=== PATIENT | male | born 1980 | race African-American/Black ===

== ENCOUNTER 2019-06-09 18:49 | Emergency (ER) | payer OTHER ==
[~2019-06-09] VITALS: Ht 162.6 cm; Wt 94.8 kg
[~2019-06-09 18:49] MED LIST: IBUPROFEN 600600 M1 PO
[2019-06-09 20:23] VITALS: BP 136/92
== END 2019-06-09 20:23 | disposition home or self-care (01) ==
LOC: ER 18:49
DX: M79.604 Pain in right leg (principal); J45.909 Unspecified asthma, uncomplicated; M10.9 Gout, unspecified; F17.210 Nicotine dependence, cigarettes, uncomplicated

== ENCOUNTER 2019-06-28 07:21 | Emergency (ER) | payer OTHER ==
[~2019-06-28] VITALS: Ht 162.6 cm; Wt 92.5 kg
[2019-06-28 07:22] VITALS: BP 111/53
== END 2019-06-28 08:37 | disposition home or self-care (01) ==
LOC: ER 07:21
DX: R51 Headache (principal); J45.909 Unspecified asthma, uncomplicated; M10.9 Gout, unspecified; F17.210 Nicotine dependence, cigarettes, uncomplicated

== ENCOUNTER 2019-07-09 17:26 | Emergency (ER) | payer OTHER ==
[~2019-07-09] VITALS: Ht 162.6 cm; Wt 96.2 kg
[2019-07-09 18:01] LABS: ABSOLUTE NEUTROPHILS 3.5 thou/uL (1.4-8.2); BASOPHILS 1.9 % (0.0-2.0); EOSINOPHILS 0.9 % (0.0-3.0); HEMATOCRIT 38.5 % (42.0-52.0); HEMOGLOBIN 11.8 gm/dL (14.0-18.0); LYMPHOCYTES 32.2 % (24.0-44.0); MCH 23.9 pg (26.0-34.0); MCHC 30.7 g/dL (28.0-37.0); MCV 77.7 fL (80.0-100.0); MONOCYTES 9.3 % (1.0-8.0); PLATELET COUNT 227 thou/uL (150-400); POLYS 55.7 % (36.0-66.0); RBC 4.96 mil/uL (4.50-6.00); RDW 18.5 % (10.5-14.5); WBC 6.3 thou/uL (4.0-11.0)
[2019-07-09 18:16] LABS: ANION GAP 5 mmol/L (7-16); BUN 10 mg/dL (7-18); CALCIUM 8.4 mg/dL (8.5-10.1); CHLORIDE 107 mmol/L (98-107); CO2 28 mmol/L (21-32); CREATININE 1.4 mg/dL (0.7-1.3); GLUCOSE 120 mg/dL (74-106); POTASSIUM 3.5 mmol/L (3.5-5.1); SODIUM 140 mmol/L (136-145)
[2019-07-09 18:21] LABS: ALBUMIN 2.9 g/dL (3.4-5.0); SGOT 14 U/L (15-37); SGPT 22 U/L (30-65); TOTAL BILIRUBIN 0.3 mg/dL (<0.1-1.0); TOTAL PROTEIN 6.1 g/dL (6.4-8.2); TROPONIN-I <0.06 ng/mL (<0.06)
[2019-07-09 18:57] LABS: ANISOCYTOSIS 2+; HYPOCHROMASIA 1+; PLATELET ESTIMATE NORMAL
[2019-07-09 18:59] VITALS: BP 115/67
--- NOTE | 2019-07-10 08:04 | EKG ---
[facility] [place] [address] ELECTROCARDIOGRAM REPORT Name: TETE BOCANEGRA Room #: DEP [facility]#: [id number] Admission: 07/09/19 Attend Phys: Discharge: 07/09/19 Date of : 78 Report #: [id number] THIS REPORT FOR: cc: Bart Redman Brady DO Lundgren, Craig H. MD [facility] ~ THIS REPORT FOR: //name// [facility] ED Test Date: 2019-07-09 Test Time: 17:55:05 Pat Name: TETE BOCANEGRA Department: Room: Gender: Program Writer: JANET : 1980 Requested By: Michelle Mcdonnell Order Number: [id number] MD: Noe Mims Measurements Intervals [place] Rate: 88 P: 40 NM: 129 QRS: 14 QRSD: 85 T: 19 QT: 364 QTc: 441 Interpretive Statements Sinus rhythm Borderline T wave abnormalities Baseline wander in lead(s) V1 No previous ECG available for comparison Electronically Signed On 07-10-2019 8:03:54 FARE COLLECTOR by Noe Mims [email or web address] <ELECTRONICALLY SIGNED> By: Noe Mims MD, FAC 07/10/19 [id number] Noe Mims MD, [facility] /EPI
== END 2019-07-09 18:59 | disposition home or self-care (01) ==
LOC: ER 17:26
PROVIDERS: Physician Assistant
DX: M54.6 Pain in thoracic spine (principal); J45.909 Unspecified asthma, uncomplicated; M10.9 Gout, unspecified; F17.210 Nicotine dependence, cigarettes, uncomplicated

== ENCOUNTER 2019-08-03 22:30 | Emergency (ER) | payer OTHER ==
[~2019-08-03] VITALS: Ht 162.6 cm; Wt 94.8 kg
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
[2019-08-03 22:33] VITALS: BP 130/80
== END 2019-08-03 23:05 | disposition home or self-care (01) ==
LOC: ER 22:30
DX: M54.6 Pain in thoracic spine (principal); J45.909 Unspecified asthma, uncomplicated; M10.9 Gout, unspecified; F17.210 Nicotine dependence, cigarettes, uncomplicated

== ENCOUNTER 2019-10-22 06:14 | Emergency (ER) | payer OTHER ==
[~2019-10-22] VITALS: Ht 162.6 cm; Wt 84.8 kg
[2019-10-22 06:20] VITALS: BP 137/72
== END 2019-10-22 07:09 | disposition home or self-care (01) ==
LOC: ER 06:14
DX: S93.491A Sprain of other ligament of right ankle, initial encounter (principal); F17.210 Nicotine dependence, cigarettes, uncomplicated; J45.909 Unspecified asthma, uncomplicated; M10.9 Gout, unspecified; X50.1XXA Overexertion from prolonged static or awkward postures, initial encounter; Y93.89 Activity, other specified; Y92.89 Other specified places as the place of occurrence of the external cause; Y99.9 Unspecified external cause status

== ENCOUNTER 2019-12-30 02:59 | Emergency (ER) | payer OTHER ==
[~2019-12-30] VITALS: Ht 162.6 cm; Wt 86.2 kg
[2019-12-30 03:09] VITALS: BP 133/76
== END 2019-12-30 03:22 | disposition home or self-care (01) ==
LOC: ER 02:59
DX: Z71.1 Person with feared health complaint in whom no diagnosis is made (principal); J45.909 Unspecified asthma, uncomplicated; M10.9 Gout, unspecified; F17.210 Nicotine dependence, cigarettes, uncomplicated; Z59.0 Homelessness